=== PATIENT | male | born 1965 | race African-American/Black ===

== ENCOUNTER 2016-12-20 18:58 | Inpatient (IN) | payer MEDICARE, BC ==
--- NOTE | ~2016-12-20 | HP ---
History And Physical [id number] [place]. [address] NAME: VICKI COREY : 67 STATUS : ADM IN [facility]#: [id number] AGE: 51 ADM/REG DATE : 12/20/16 MR#: [id number] REPORT SERV DATE: 12/20/16 DICTATED BY: GIN SANTANA DATE: 12/20/16 REPORT STATUS : Draft TRANSCRIBED BY: MODL DATE: 12/20/16 DATE OF ADMISSION: 12/20/2016 CHIEF COMPLAINT: Weak and dizzy with shortness of breath. HISTORY OF PRESENT ILLNESS: Mr. Corey is a very pleasant, 51-year-old, male, past medical history of end-stage renal disease, kidney-pancreas transplant in 2000, diabetes mellitus, blindness, peripheral vascular disease, who presented to the hospital with above described complaints of weakness, dizziness, and shortness of breath. He was hospitalized here in October with bilateral pneumonia and was discharged home. His states that when he left the hospital, his hemoglobin was around 9. Last hemoglobin that we have here on November 10 was 10.1. He has been on Aranesp according to the 100 mcg every week. He had a hemoglobin checked earlier this week and it was 7.1, and upon presentation today, his hemoglobin is 5.5. He did have a stool Hemoccult done in the ER, which was reportedly negative. There is no description of dark tarry stools, but the patient is blind, and his has not observed. He has had no hematemesis, hematochezia, or other systemic complaints excluding those described. On presentation here, chest x-ray was normal showed no new cardiac infiltrates. Hemoglobin is 5.5 with hematocrit of 17.4 with a WBC count of 3.3, and platelets of 167. Potassium 4.3, and BUN and creatinine 71 and 9.39 with a glucose of 295. PAST MEDICAL HISTORY: 1. Pneumonia in October 2016. 2. End-stage renal disease, on PD at [facility]. 3. Kidney-pancreas transplant in 2000 at [facility]. 4. Diabetes mellitus type 2. 5. 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 6. Hypertension. 7. Peripheral vascular disease with prior left lower extremity stenting and amputation of the great toe. 8. Chronic immunosuppression. 9. Hyperlipidemia. 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 11.Goiter. ALLERGIES: KEFLEX. HOME MEDICATIONS: 1. Losartan 25 daily. 2. Rocaltrol 0.25 mcg daily. 3. Aspirin 325 daily. 4. Iron sulfate 325 daily. 5. Coreg 6.25 twice a day. 6. Atorvastatin 40 daily. 7. Amlodipine 10 daily. 8. CellCept 250 twice a day. History And Physical [address] [address] NAME: VICKI COREY : 67 STATUS : ADM IN [facility]#: [id number] AGE: 51 ADM/REG DATE : 12/20/16 MR#: [id number] REPORT SERV DATE: 12/20/16 DICTATED BY: GIN SANTANA DATE: 12/20/16 REPORT STATUS : Draft TRANSCRIBED BY: NIGEL DATE: 12/20/16 9. Prednisone 5 mg daily. 10.PhosLo 667 mg t.i.d. 11.Levemir 10 units q.a.m. (presently not using), 18 units q.p.m. 12.NovoLog insulin. FAMILY HISTORY: Mother of pulmonary embolus at age 63. There is history of lupus. No history of end-stage renal disease. REVIEW OF SYSTEMS: All systems reviewed, negative excluding those mentioned and highlighted in history of present illness. PHYSICAL EXAMINATION: VITAL SIGNS: Blood pressure 121/68, O2 95 on 4 L, temperature 99.6, pulse 114, respiratory rate 17. GENERAL: This is a chronically ill, male, resting comfortably, in no acute distress. HEENT: Normocephalic, atraumatic. Oropharynx clear. No exudate. NECK: Supple. No JVD or thyromegaly. No carotid bruits. Trachea midline. No stridor. CARDIOVASCULAR: Tachycardic. S1, S2. No rubs or gallops. Point of maximal impulse nondisplaced. RESPIRATORY: Mostly clear. No wheezes, rhonchi, tachypnea, or accessory muscles in use. GI: Abdomen is soft, nontender, nondistended. No hepatosplenomegaly appreciated. PD catheter in place. Clear without evidence of drainage. SKIN: No rash or breakdown. Normal turgor. NEUROLOGIC: Cranial nerves II through XII grossly intact. Motor and sensory examinations within normal limits. Strength 5/5 x4 extremities. MUSCULOSKELETAL: Full range of motion in all joints. No crepitus or joint effusions. LYMPH: No supraclavicular, cervical, inguinal, or axillary adenopathy. LABS AND DIAGNOSTIC DATA: WBC 3.3, hemoglobin 5.5, hematocrit 17.4, platelets 167. ASSESSMENT: 1. Severe symptomatic anemia with a hemoglobin of 5.5, and steady decline over the past 4 weeks. ? myelosuppression from transplant drugs versus inadequate erythropoiesis versus blood loss. 2. End-stage renal disease, on PD. 3. Hypertension. 4. Diabetes mellitus with retinopathy, nephropathy, and neuropathy. 5. Prior kidney-pancreas transplant, on CellCept and prednisone. 6. Diabetes mellitus type 2. 7. Recent pneumonia. PLAN: 1. Type and cross, transfuse 2 units packed red blood cells. We will give 1 unit of packed red blood cells and repeat H and H. We will attempt to give leukoreduced packed red blood cells if able in light of his transplant status. History And Physical [address] [address] NAME: VICKI COREY : 67 STATUS : ADM IN PAT#: [id number] AGE: 51 ADM/REG DATE : 12/20/16 MR#: [id number] REPORT SERV DATE: 12/20/16 DICTATED BY: GIN SANTANA DATE: 12/20/16 REPORT STATUS : Draft TRANSCRIBED BY: NIGEL DATE: 12/20/16 2. Serial H and H. 3. A stool occult blood x3. 4. Home PD. His prescription is 10 hours 5 exchanges with 1.5% and 2.5% solution. Partners to follow. MOISE/MERCYL Gin Santana M.D. / [id number] CC: Naeem Ac M.D.
--- NOTE | ~2016-12-20 | DS ---
Discharge Summary [facility] [address] [place]. [address] NAME: VICKI COREY : 67 STATUS : DIS IN PAT#: [id number] AGE: 51 ADM/REG DATE : 12/20/16 MR#: [id number] REPORT SERV DATE: 01/03/17 DICTATED BY: FROYLAN FLORES DATE: 01/02/17 REPORT STATUS : Draft TRANSCRIBED BY: MODL DATE: 01/02/17 Data Collection from hospitalization DISCHARGE DIAGNOSES: 1. Anemia. 2. End-stage renal disease, on peritoneal dialysis. 3. Blindness secondary to diabetes mellitus. 4. Diabetes mellitus. 5. Hypertension. 6. History of failed renal transplant. 7. Peripheral vascular disease. 8. Chronic immunosuppression. 9. Hyperlipidemia. 10.Goiter. 11.History of condyloma of the penis. CONSULTATION: Dr. Manuel Estrada. PROCEDURES: Bone marrow aspiration and biopsy, 12/23/2016. PATHOLOGY: Peripheral smear with moderate hypoproliferative anemia and mild thrombocytopenia. Hemoglobin 8.7 g/dL with rouleaux formation and reticulocyte count of 1.5%, uncorrected. Platelet 126,000/mm3. White blood cells 4100/mm3 with 2790 neutrophils/mm3. Unilateral bone marrow biopsy and aspiration and clot section-mildly hypocellular marrow with mild polyclonal plasmacytosis. No morphologic evidence of myelodysplastic syndrome. Abundant storage iron was present. DISCHARGE MEDICATIONS: Norvasc 10 mg every morning; Travis Aspirin 325 mg at bedtime; Lipitor 40 mg at bedtime; Rocaltrol 0.25 mcg on Mondays, Wednesdays, Fridays; PhosLo 667 mg three times a day; Coreg 6.25 mg twice a day, ferrous sulfate 325 mg every evening; NovoLog FlexPen 10 units subcutaneously three times a day and as instructed; Levemir 18 units subcutaneously at bedtime; Levemir 10 units subcutaneously every morning as needed, Centrum tablets one tablet every morning; CellCept 250 mg twice a day, Deltasone 5 mg twice a day. CONDITION ON DISCHARGE: Stable. DISPOSITION: The patient was discharged home on a renal diet with activities as instructed. He would follow up with Dr. Santiago Trammell as instructed. He would follow up with id as instructed. He would follow up with peritoneal dialysis/home care as instructed. HOSPITAL COURSE: This is a 51-year-old man, who has a history of end-stage renal disease as well as a history of kidney-pancreas transplant in 2000, diabetes mellitus, blindness, and peripheral vascular disease, who presented to the hospital with a chief complaint of weakness and dizziness with shortness of breath. He then hospitalized here in October with bilateral pneumonia and had been discharged home. His said that when he left the hospital, his hemoglobin was around 9. The last hemoglobin we have here on 11/10/2016 was 10.1. He has been on Aranesp according to his 100 mcg every week. Hemoglobin level was checked earlier this week and it was 7.1. On presentation on the day of this admission, Discharge Summary [id number] [place]. [address] NAME: VICKI COREY : 67 STATUS : DIS IN [facility]#: [id number] AGE: 51 ADM/REG DATE : 12/20/16 MR#: [id number] REPORT SERV DATE: 01/03/17 DICTATED BY: FROYLAN FLORES DATE: 01/02/17 REPORT STATUS : Draft TRANSCRIBED BY: NIGEL DATE: 01/02/17 it was 5.5. He had a stool Hemoccult done in the emergency room, which was reportedly negative. There was no description of dark tarry stools, but the patient is blind and his had not observed. He had had no hematemesis, hematochezia, or other systemic complaints, excluding these described. On presentation, his chest x-ray was normal and showed no new infiltrates. Creatinine level was 9.39, white count was 3.3. He was admitted to the hospital for further evaluation and treatment. Upon admission, he was typed and crossed and transfused two units of packed red blood cells. We would attempt to give leukoreduced packed red blood cells if able in light of his transplant status. Serial H and H would be checked. Stool occult blood x3 would be performed. The following day, vancomycin was continued. He said he was feeling better. He would be transfused as needed. O2 was being titrated. Sliding scale insulin only was being given at this time. On 12/22/2016, he was seen by Dr. Manuel Estrada regarding pancytopenia with severe anemia. His hemoglobin had apparently been doing well in the fall and he transiently been taken off Aranesp, but then placed back on it as anemia was reoccurring. He has a history of previous kidney transplant and had been on immunosuppressive therapy. He had been in the hospital for bilateral pneumonia not that long ago. He had received 3 units of blood since being in the hospital and hemoglobin was now 7.8. White count was a little low at 3.3 and platelet count was 122. It was 167 on admission. Procalcitonin level was elevated at over 4 on admission. He had a normal bilirubin. Iron and TIBC were both low with normal iron saturation and markedly elevated ferritin over 1300. B12 level was also elevated at 1600 and folate level was 23. He was currently feeling better post blood transfusions. He personally reviewed the patient's smear and he had a predominance of neutrophils with some increase in bands. No immature white cells were seen. There was slight toxic granulation to some of the neutrophils. No blasts or other early myeloid cells were seen. Red cells showed significant abnormal morphology with anisocytosis, poikilocytosis, and possibly some polychromasia. A few of the cells looked a little hypochromic, another 6 spherocytic. There were occasional helmet cells and other rare fragmented red cells. Rare teardrop cells were seen. Platelets were slightly decreased, but unremarkable without obvious clumping. It was felt that he could have some marrow suppression from infection and also anemia of chronic disease, but the anemia of chronic disease does not explain the rapid drop in hemoglobin over the past several weeks while getting Aranesp. He had not had any visible blood in his peritoneal dialysis fluid removed either. A reticulocyte count and LDH would be checked. There was a low threshold for ordering a bone marrow biopsy as well to make sure we were not missing some other marrow based process. He complained of having a cough at night that was nonproductive. Peritoneal dialysis therapy continued. On 12/23/2016, he was feeling okay. A bone marrow biopsy was performed. Hemoglobin level was stable at this time. Antibiotics were stopped. The next day, he had no new complaints. He was afebrile. White blood cell count was normal. Platelet count was stable. Aranesp was going to be continued. Discharge planning was performed. On 12/25/2016, hemoglobin level was 8.7. He wanted to go home. Discharge instructions were given. Due to his improved and stable condition, he was discharged home with the above-stated instructions. Information collected by: Jyothi White I submit the above information as my discharge summary. Discharge Summary [facility] [address] [place]. [address] NAME: VICKI COREY : 67 STATUS : DIS IN PAT#: [id number] AGE: 51 ADM/REG DATE : 12/20/16 MR#: [id number] REPORT SERV DATE: 01/03/17 DICTATED BY: FROYLAN FLORES DATE: 01/02/17 REPORT STATUS : Draft TRANSCRIBED BY: MODL DATE: 01/02/17 TG/NIGEL Froylan Flores M.D. / [id number] CC: Naeem Ac M.D. Michael Stipanov, M.D.
--- NOTE | ~2016-12-20 | CN ---
Consultation Report [facility] [address] [place]. [address] NAME: VIKCI COREY : 67 STATUS : ADM IN PAT#: [id number] AGE: 51 ADM/REG DATE : 12/20/16 MR#: [id number] REPORT SERV DATE: 12/22/16 DICTATED BY: MANUEL ESTRADA DATE: 12/22/16 REPORT STATUS : Draft TRANSCRIBED BY: MODWendy DATE: 12/22/16 CONSULTATION NOTE DATE OF CONSULTATION: 12/22/2016 REASON FOR CONSULTATION: Pancytopenia with severe anemia. HISTORY: Mr. Corey is a 51-year-old with a history of type 1 diabetes and end-stage renal disease, on peritoneal dialysis. His hemoglobin was apparently doing well in the fall and he was transiently taken off Aranesp, but then placed back on it as anemia was recurring. He has also had a previous kidney transplant and has been on immunosuppressive therapy. He was also in the hospital for bilateral pneumonia, not too long ago. His hemoglobin was around 9 at that time and on 11/10/2016 it was 10.1. He has been getting 100 mcg of Aranesp every 2 weeks recently. He has had no visible blood loss known (however, the patient himself is blind). He has had no significant sore throat. He has had a very minimal cough recently, but no dysuria. He was admitted with weakness and a hemoglobin of 5.5. Stool for occult blood in the ER was negative. His creatinine has been running in the 9 range. He has received 3 units of blood since being in the hospital and his hemoglobin is up to 7.8 today. His white count is a little bit low at 3.3 and platelets were 122 today, down from 167 on admission. He did have an elevated procalcitonin level at over 4 on admission. He had a normal bilirubin on 12/20/2016 at 0.5. LDH is pending. Iron and TIBC were both low with a normal iron saturation and a markedly elevated ferritin over 1300. B12 level was elevated at 1600 and folate level was 23. He is currently feeling better post blood transfusions. PAST MEDICAL HISTORY: Significant for end-stage renal disease, on peritoneal dialysis. He has also had a kidney transplant back in 2000. He also has a history of type 1 diabetes, diagnosed at age 14, and he is completely blind from this as well; and also recent pneumonia. FAMILY HISTORY: Negative for coronary artery disease. SOCIAL HISTORY: He lives locally and is . He has a daughter and she is doing well. He is disabled from his end-stage renal disease and blindness. REVIEW OF SYSTEMS: Per HPI above, otherwise unrevealing. CURRENT MEDICATIONS: Include Zosyn, Tylenol, Rocaltrol, PhosLo, Deltasone 5 mg daily, morphine, NovoLog, Levemir, CellCept, Lipitor, subcu heparin and recent vancomycin is given. PHYSICAL EXAMINATION: VITAL SIGNS: Blood pressure 95/59, O2 sats 92% on 2 L, current temperature 101.4 and an elevated temperature of 102.6, pulse 90. Consultation Report [address] [place]. [address] NAME: VICKI COREY : 67 STATUS : ADM IN [facility]#: [id number] AGE: 51 ADM/REG DATE : 12/20/16 MR#: [id number] REPORT SERV DATE: 12/22/16 DICTATED BY: MANUEL ESTRADA DATE: 12/22/16 REPORT STATUS : Draft TRANSCRIBED BY: NIGEL DATE: 12/22/16 GENERAL: He is an male, who is blind. Despite multiple problems, he is not in distress and appears comfortable. HEENT: Oropharynx clear. NECK: Without obvious adenopathy or JVD. LUNGS: Clear anteriorly. CARDIAC: Regular without murmur, rub, or gallop. ABDOMEN: Soft. Not overtly tender. He does have a PD catheter implanted in his abdomen with a clean exit site, with no purulent drainage or surrounding erythema. EXTREMITIES: Without cyanosis or edema. NEUROLOGIC: He moves all extremities. He is blind as above. He is coherent and is a good historian. He is in good spirits. SKIN: Without obvious lesions seen. LABORATORY DATA: White count 3.3, hemoglobin up to 7.8 from a low of 5.5 on admission, platelets are down from 167 to 122 on admission. Differential shows 51 segs, 9 bands, 14 lymphocytes, 23 monos and 2 eos. I personally reviewed his smear and he has a predominance of neutrophils with some increase in bands. No immature white cells are seen. There is slight toxic granulation to some of the neutrophils. No blasts or other early myeloid cells are seen. Red cells showed significant abnormal morphology with anisocytosis, poikilocytosis, and possibly some polychromasia. A few of the cells look a little hypochromic, another 6 spherocytic. There were occasional helmet cells and other rare fragmented red cells. Rare teardrop cells were seen. Platelets are slightly decreased, but unremarkable without obvious clumping. IMPRESSION: Mr. Corey has mild pancytopenia with marked anemia for unclear reasons. He has a fever, elevated procalcitonin level, and possible infection from unclear source. He has no obvious bleeding. Initial stool is heme negative. He could have some marrow suppression from infection and of course, has anemia of chronic kidney disease, but the anemia of chronic kidney disease does not explain the rapid drop in hemoglobin over the last several weeks while getting Aranesp. He has not had any visible blood in his peritoneal dialysis fluid removed either. I will start with a retic count and LDH. I will have a low threshold for ordering a bone marrow biopsy as well to make sure not missing some other marrow-based process. We will follow with colleagues when he is well enough to go home. He can follow up in the office as well. I appreciate the chance to be of help. /NIGEL Manuel Estrada M.D. / [id number] CC: Consultation Report [address] [address] NAME: VICKI COREY : 67 STATUS : ADM IN [facility]#: [id number] AGE: 51 ADM/REG DATE : 12/20/16 MR#: [id number] REPORT SERV DATE: 12/22/16 DICTATED BY: MANUEL ESTRADA DATE: 12/22/16 REPORT STATUS : Draft TRANSCRIBED BY: NIGEL DATE: 12/22/16 Naeem Ac M.D.
[2016-12-20 17:07] LABS: BASOPHILS 0.6 %; BASOPHILS ABSOLUTE 0.02 10/3/uL (0.0-0.16); EOSINOPHILS 2.4 %; EOSINOPHILS ABSOLUTE 0.08 10/3/uL (0.0-0.53); LYMPHOCYTES ABSOLUTE 0.97 10/3/uL (0.67-4.30); MEAN CORPUS HGB CONC 31.6 g/dL (32.0-36.0); MEAN CORPUSCULAR HEMOGLOB 29.4 pg (26.0-34.0); MEAN PLATELET VOLUME 10.6 fL (9.2-13.0); MONOCYTES 20.1 %; MONOCYTES ABSOLUTE 0.67 10/3/uL (0.21-1.20); NEUTROPHILS 47.9 %; NUCLEATED RED BLOOD CELLS 1.2 /100WBC (0-0); PLATELET COUNT 167 10/3/uL (150-400); RBC DISTRIBUTION WIDTH 16.5 % (12.0-16.0)
[2016-12-20 17:11] LABS: A/G RATIO 0.6 (0.7-1.9); ALKALINE PHOSPHATASE 77 U/L (45-117); CALCIUM, SERUM 8.5 MG/DL (8.5-10.4); CHLORIDE, SERUM 102 MMOL/L (96-112); GLOBULIN 3.9 G/DL (2.5-4.1); SGOT(AST) 62 U/L (5-40); SGPT(ALT) 31 U/L (5-65); SODIUM, SERUM 140 MMOL/L (135-148); TOTAL BILIRUBIN 0.5 MG/DL (0-1.2); TOTAL PROTEIN 6.4 G/DL (6.0-8.5)
[2016-12-20 17:12] LABS: ER CBC TAT 0 Hrs 24 Mins; HEMATOCRIT 17.4 % (40.0-51.0); HEMOGLOBIN 5.5 g/dL (13.6-17.8); RED CELL COUNT 1.87 10/6/uL (4.7-6.1); WHITE BLOOD CELLS 3.3 10/3/uL (4.5-10.5)
[2016-12-20 17:13] LABS: MANUAL DIFF NO %
[2016-12-20 17:15] LABS: ALBUMIN 2.5 G/DL (3.5-5.0); BUN (BLOOD UREA NITROGEN) 71 MG/DL (6-23); CO2 (CARBON DIOXIDE) 21 MMOL/L (24-34); CREATININE 9.39 MG/DL (0.70-1.30); GFR AFRICAN AMERICAN 7 ML/MIN (>=60); GFR NON AFRICAN AMERICAN 6 ML/MIN (>=60); GLUCOSE, SERUM 295 MG/DL (60-99); POTASSIUM, SERUM 4.3 MMOL/L (3.5-5.3)
[2016-12-20 17:30] LABS: ANISOCYTOSIS 1+ (5-10/OIF) (0-5/OIF); BAND NEUTROPHILS 2 %; ER DIFF TAT 0 Hrs 42 Mins; HELMET CELLS OCC (0-2/OIF); LYMPHOCYTES 28 %; LYMPHOCYTES ABSOLUTE (CALC) 0.92 10/3/uL (0.67-4.30); MONOCYTES 18 %; MONOCYTES ABSOLUTE (CALC) 0.59 10/3/uL (0.21-1.20); NEUTROPHILS ABSOLUTE (CALC) 1.78 10/3/uL (2.02-8.40); OVALOCYTES 1+ (3-10/OIF) (0-2/OIF); PLATELET ESTIMATE ADQ (ADEQUATE); SCHISTOCYTES OCC (0-2/OIF); SEGMENTED NEUTROPHIL (0) 52 %; TEARDROP SHAPED RBCS OCC (0-2/OIF); TOTAL NUCLEATED CELLS 50
[~2016-12-20 18:58] MED LIST: AMLODIPINE; APRES25 PO; APRES50 PO; APRESOLINE; ASA5GR PO; ASAB PO; ASPIRIN; ATORVASTATIN; CARVEDILOL; CELLCEPT; CELLCEPT2 PO; CELLCEPT5 PO; CENTRUM PO; CLOPIDOGREL; COREG12 PO; COREG25 PO; COREG6 PO; COZ25 PO; DICLOXACILL250 MG OR; FERROUS SULF325 M1 PO; HUMULIN N1 ML SC; IRON325 MG PO; L40 PO; LEVAQUIN; LEVAQUIN5T PO; LEVEMIR SC; LIPITOR10 PO; LIPITOR40 PO; LORTAB 5 PO; NORV10 PO; NORV5 PO; NOVOLOG; NOVOLOG SC; NOVOPEN SC; NYS500UDL PO; P5 PO; PHOSLO PO; PREDNISONE; PRIN10 PO; PRIN20 PO; PROCRIT40 SC; PROGRAF; PROGRAF1 PO; ROCALTROL 0.0.25 MCG PO; SODBICAR10 PO; SODIUM BICAR; THERGRANM PO; VITAMIN D31000 UNIT PO; VITD PO
[2016-12-20 19:33] LABS: INTERNATIONAL NORMAL RATI 1.3 UNITS (-); PROTIME (NOT ORD) 16.3 SEC (12.0-14.5)
[2016-12-20] MEDS ORDERED: NORV10 PO (19:51)
[2016-12-20] MEDS ORDERED: ASABAYER PO (19:51)
[2016-12-20] MEDS ORDERED: COZ25 PO (19:52)
[2016-12-20] MEDS ORDERED: P5 PO (19:53)
[2016-12-20] MEDS ORDERED: CELLCEPT2 PO (19:54)
[2016-12-20] MEDS ORDERED: CENTRUM PO (19:54)
[2016-12-20] MEDS ORDERED: FERROUS SULF325 M1 PO (19:54)
[2016-12-20] MEDS ORDERED: LEVEMIR SC ×2 (19:55→19:56)
[2016-12-20] MEDS ORDERED: NOVOPEN SC ×2 (19:57)
[2016-12-20] MEDS ORDERED: ROCALTROL0.25 MCG PO (19:58)
[2016-12-20] MEDS ORDERED: PHOSLO PO ×2 (19:58→19:59)
[2016-12-20] MEDS ORDERED: COREG6 PO (19:58)
[2016-12-20] MEDS ORDERED: LIPITOR40 PO (20:01)
[2016-12-20] MEDS ORDERED: CLINDA150 PO (20:11)
[2016-12-21 01:11] LABS: HEMATOCRIT 19.7 % (40.0-51.0); HEMOGLOBIN 6.5 g/dL (13.6-17.8)
[2016-12-21 08:02] LABS: BASOPHILS 0.8 %; BASOPHILS ABSOLUTE 0.03 10/3/uL (0.0-0.16); EOSINOPHILS 4.1 %; EOSINOPHILS ABSOLUTE 0.15 10/3/uL (0.0-0.53); HEMOGLOBIN 7.1 g/dL (13.6-17.8); IMMATURE GRANULOCYTES 0.6 %; IMMATURE GRANULOCYTES ABSOLUTE 0.02 10/3/uL (0.0-0.11); LYMPHOCYTES 27.3 %; LYMPHOCYTES ABSOLUTE 0.99 10/3/uL (0.67-4.30); MEAN CORPUS HGB CONC 32.4 g/dL (32.0-36.0); MEAN CORPUSCULAR HEMOGLOB 29.6 pg (26.0-34.0); MEAN CORPUSCULAR VOLUME 91.3 fL (80-100); MEAN PLATELET VOLUME 10.9 fL (9.2-13.0); MONOCYTES 18.5 %; MONOCYTES ABSOLUTE 0.67 10/3/uL (0.21-1.20); NEUTROPHILS 48.7 %; NEUTROPHILS ABSOLUTE 1.76 10/3/uL (2.02-8.40); NUCLEATED RED BLOOD CELLS 1.3 /100WBC (0-0); PLATELET COUNT 145 10/3/uL (150-400); RBC DISTRIBUTION WIDTH 16.6 % (12.0-16.0); WHITE BLOOD CELLS 3.6 10/3/uL (4.5-10.5)
[2016-12-21 08:15] LABS: HEMATOCRIT 21.9 % (40.0-51.0); MANUAL DIFF NO %
[2016-12-21 08:38] LABS: ALBUMIN 2.3 G/DL (3.5-5.0); BUN (BLOOD UREA NITROGEN) 70 MG/DL (6-23); CALCIUM, SERUM 8.3 MG/DL (8.5-10.4); CHLORIDE, SERUM 106 MMOL/L (96-112); CO2 (CARBON DIOXIDE) 22 MMOL/L (24-34); FERRITIN 1140 NG/ML (26-388); GFR AFRICAN AMERICAN 6 ML/MIN (>=60); GFR NON AFRICAN AMERICAN 6 ML/MIN (>=60); IRON, SERUM 29 MCG/DL (35-150); PHOSPHORUS, SERUM 4.1 MG/DL (2.5-4.5); SODIUM, SERUM 143 MMOL/L (135-148)
[2016-12-21 08:40] LABS: FOLATE 23.5 NG/ML (>5.2); GLUCOSE, SERUM 66 MG/DL (60-99)
[2016-12-21 15:55] LABS: ASCORBIC ACID (UR NOT ORDER) NEG (NEG); BILIRUBIN, URINE NEGATIVE (NEG); KETONE, URINE NEGATIVE (NEG); LEUKOCYTE ESTERASE(NOT OR NEG (NEG); WBC (NOT ORDERED) (RFLEX) 4 (0-5)
[2016-12-21 15:58] LABS: HEMATOCRIT 20.9 % (40.0-51.0)
[2016-12-21 17:54] LABS: INFLUENZA A SCREEN NEGATIVE (NEGATIVE); INFLUENZA B SCREEN NEGATIVE (NEGATIVE)
[2016-12-21 18:13] LABS: PROCALCITONIN 4.15 ng/mL (<0.5)
[2016-12-21 20:22] LABS: HEMOGLOBIN 6.4 g/dL (13.6-17.8)
[2016-12-21 20:36] LABS: BD FL SOURCE (NOT ORD) PERITONEAL
[2016-12-21 20:38] LABS: BD FL LYMPH (NOT ORD) 8 %; BF BASO (NOT OF) 0 %; BF LARGE MONONUCLEAR 70 %; BODY FLUID EOS (NOT ORD) 0 %; BODY FLUID SEG (NOT ORD) 22 %
[2016-12-21 21:55] LABS: BF TOTAL CELL CT (NOT ORD 53 /MM3; BODY FLUID RBC (NOT ORD) < 10 /MM3
[2016-12-22 11:53] LABS: MEAN CORPUS HGB CONC 32.5 g/dL (32.0-36.0); MEAN CORPUSCULAR HEMOGLOB 29.2 pg (26.0-34.0); MEAN CORPUSCULAR VOLUME 89.9 fL (80-100); MEAN PLATELET VOLUME 11.1 fL (9.2-13.0); PLATELET COUNT 122 10/3/uL (150-400); RBC DISTRIBUTION WIDTH 17.7 % (12.0-16.0); RED CELL COUNT 2.67 10/6/uL (4.7-6.1); WHITE BLOOD CELLS 3.3 10/3/uL (4.5-10.5)
[2016-12-22 11:56] LABS: HEMOGLOBIN 7.8 g/dL (13.6-17.8); MANUAL DIFF YES %
[2016-12-22 12:10] LABS: CALCIUM, SERUM 8.3 MG/DL (8.5-10.4); CHLORIDE, SERUM 106 MMOL/L (96-112); CO2 (CARBON DIOXIDE) 24 MMOL/L (24-34); PHOSPHORUS, SERUM 3.6 MG/DL (2.5-4.5); POTASSIUM, SERUM 3.7 MMOL/L (3.5-5.3); SODIUM, SERUM 142 MMOL/L (135-148)
[2016-12-22 12:11] LABS: BUN (BLOOD UREA NITROGEN) 66 MG/DL (6-23); CREATININE 9.08 MG/DL (0.70-1.30); GFR AFRICAN AMERICAN 7 ML/MIN (>=60); GFR NON AFRICAN AMERICAN 6 ML/MIN (>=60); GLUCOSE, SERUM 84 MG/DL (60-99)
[2016-12-22 12:20] LABS: BAND NEUTROPHILS 9 %; BURR CELLS 1+ (3-10/OIF) (0-2/OIF); EOSINOPHILS 2 %; EOSINOPHILS ABSOLUTE (CALC) 0.07 10/3/uL (0.0-0.53); HELMET CELLS OCC (0-2/OIF); IMMATURE GRANS ABSOLUTE (CALC) 0.03 10/3/uL (0.0-0.11); LYMPHOCYTES 14 %; LYMPHOCYTES ABSOLUTE (CALC) 0.46 10/3/uL (0.67-4.30); METAMYELOCYTES 1 %; MONOCYTES 23 %; MONOCYTES ABSOLUTE (CALC) 0.76 10/3/uL (0.21-1.20); NEUTROPHILS ABSOLUTE (CALC) 1.98 10/3/uL (2.02-8.40); PLATELET ESTIMATE SLT DEC (ADEQUATE); POIKILOCYTOSIS 1+ (5-10/OIF) (0-5/OIF); SEGMENTED NEUTROPHIL (0) 51 %; TOTAL NUCLEATED CELLS 100
[2016-12-22 12:21] LABS: ANISOCYTOSIS 1+ (5-10/OIF) (0-5/OIF); MACROCYTES 1+ (5-10/OIF) (0-5/OIF); TOXIC GRANULATION 1+
[2016-12-22 14:49] LABS: RETICULOCYTE COUNT 1.3 % (0.5-2.9)
[2016-12-22 20:14] LABS: HEMATOCRIT 24.7 % (40.0-51.0)
[2016-12-23 08:39] LABS: HEMATOCRIT 26.9 % (40.0-51.0); HEMOGLOBIN 8.7 g/dL (13.6-17.8); MEAN CORPUS HGB CONC 32.3 g/dL (32.0-36.0); MEAN CORPUSCULAR HEMOGLOB 29.5 pg (26.0-34.0); MEAN CORPUSCULAR VOLUME 91.2 fL (80-100); MEAN PLATELET VOLUME 11.5 fL (9.2-13.0); PLATELET COUNT 126 10/3/uL (150-400); RBC DISTRIBUTION WIDTH 17.6 % (12.0-16.0); RED CELL COUNT 2.95 10/6/uL (4.7-6.1); WHITE BLOOD CELLS 4.1 10/3/uL (4.5-10.5)
[2016-12-23 08:42] LABS: MANUAL DIFF YES %
[2016-12-23 08:51] LABS: CALCIUM, SERUM 8.3 MG/DL (8.5-10.4); CHLORIDE, SERUM 104 MMOL/L (96-112); CO2 (CARBON DIOXIDE) 26 MMOL/L (24-34); PHOSPHORUS, SERUM 3.7 MG/DL (2.5-4.5); POTASSIUM, SERUM 3.6 MMOL/L (3.5-5.3); SODIUM, SERUM 141 MMOL/L (135-148)
[2016-12-23 08:52] LABS: BUN (BLOOD UREA NITROGEN) 61 MG/DL (6-23); CREATININE 8.56 MG/DL (0.70-1.30); GFR AFRICAN AMERICAN 8 ML/MIN (>=60); GFR NON AFRICAN AMERICAN 7 ML/MIN (>=60); GLUCOSE, SERUM 248 MG/DL (60-99)
[2016-12-23 09:18] LABS: BAND NEUTROPHILS 7 %; EOSINOPHILS 4 %; EOSINOPHILS ABSOLUTE (CALC) 0.16 10/3/uL (0.0-0.53); LYMPHOCYTES 21 %; LYMPHOCYTES ABSOLUTE (CALC) 0.86 10/3/uL (0.67-4.30); MONOCYTES 7 %; MONOCYTES ABSOLUTE (CALC) 0.29 10/3/uL (0.21-1.20); NEUTROPHILS ABSOLUTE (CALC) 2.79 10/3/uL (2.02-8.40); SEGMENTED NEUTROPHIL (0) 61 %; TOTAL NUCLEATED CELLS 100
[2016-12-23 09:19] LABS: ANISOCYTOSIS 1+ (5-10/OIF) (0-5/OIF); PLATELET ESTIMATE SLT DEC (ADEQUATE); POIKILOCYTOSIS 1+ (5-10/OIF) (0-5/OIF); POLYCHROMASIA 1+ (2-5/OIF) (0-1/OIF); TOXIC GRANULATION 1+
[2016-12-23 13:08] LABS: HEMATOCRIT 24.8 % (40.0-51.0); HEMOGLOBIN 7.9 g/dL (13.6-17.8); RETICULOCYTE COUNT 1.5 % (0.5-2.5); RETICULOCYTE COUNT ABSOLUTE 41.8 10/3/uL (20.2-119.8)
[2016-12-23 20:09] LABS: HEMOGLOBIN 8.8 g/dL (13.6-17.8)
[2016-12-23 20:11] LABS: HEMATOCRIT 27.3 % (40.0-51.0)
[2016-12-24 07:38] LABS: BUN (BLOOD UREA NITROGEN) 51 MG/DL (6-23); CALCIUM, SERUM 8.7 MG/DL (8.5-10.4); CHLORIDE, SERUM 103 MMOL/L (96-112); CO2 (CARBON DIOXIDE) 25 MMOL/L (24-34); CREATININE 8.17 MG/DL (0.70-1.30); GFR AFRICAN AMERICAN 8 ML/MIN (>=60); GFR NON AFRICAN AMERICAN 7 ML/MIN (>=60); GLUCOSE, SERUM 261 MG/DL (60-99); POTASSIUM, SERUM 3.5 MMOL/L (3.5-5.3); SODIUM, SERUM 141 MMOL/L (135-148)
[2016-12-24 08:06] LABS: HEMATOCRIT 26.6 % (40.0-51.0); HEMOGLOBIN 8.4 g/dL (13.6-17.8); MANUAL DIFF YES %; MEAN CORPUS HGB CONC 31.6 g/dL (32.0-36.0); MEAN CORPUSCULAR HEMOGLOB 28.8 pg (26.0-34.0); MEAN CORPUSCULAR VOLUME 91.1 fL (80-100); MEAN PLATELET VOLUME 12.3 fL (9.2-13.0); PLATELET COUNT 124 10/3/uL (150-400); RED CELL COUNT 2.92 10/6/uL (4.7-6.1); WHITE BLOOD CELLS 4.5 10/3/uL (4.5-10.5)
[2016-12-24 08:28] LABS: ACANTHOCYTES OCC (0-2/OIF); ANISOCYTOSIS 1+ (5-10/OIF) (0-5/OIF); EOSINOPHILS 10 %; EOSINOPHILS ABSOLUTE (CALC) 0.45 10/3/uL (0.0-0.53); LYMPHOCYTES 18 %; LYMPHOCYTES ABSOLUTE (CALC) 0.81 10/3/uL (0.67-4.30); MONOCYTES 22 %; MONOCYTES ABSOLUTE (CALC) 0.99 10/3/uL (0.21-1.20); NEUTROPHILS ABSOLUTE (CALC) 2.25 10/3/uL (2.02-8.40); PLATELET ESTIMATE SLT DEC (ADEQUATE); SEGMENTED NEUTROPHIL (0) 50 %; TOTAL NUCLEATED CELLS 100
[2016-12-24 12:36] LABS: HEMATOCRIT 27.2 % (40.0-51.0); HEMOGLOBIN 8.5 g/dL (13.6-17.8)
[2016-12-24 20:50] LABS: HEMATOCRIT 28.5 % (40.0-51.0); HEMOGLOBIN 9.2 g/dL (13.6-17.8)
[2016-12-25 06:31] LABS: BASOPHILS 0.2 %; BASOPHILS ABSOLUTE 0.01 10/3/uL (0.0-0.16); EOSINOPHILS 4.2 %; EOSINOPHILS ABSOLUTE 0.17 10/3/uL (0.0-0.53); HEMATOCRIT 27.7 % (40.0-51.0); IMMATURE GRANULOCYTES 0.2 %; IMMATURE GRANULOCYTES ABSOLUTE 0.01 10/3/uL (0.0-0.11); LYMPHOCYTES 21.1 %; LYMPHOCYTES ABSOLUTE 0.86 10/3/uL (0.67-4.30); MEAN CORPUS HGB CONC 32.5 g/dL (32.0-36.0); MEAN CORPUSCULAR HEMOGLOB 29.8 pg (26.0-34.0); MEAN CORPUSCULAR VOLUME 91.7 fL (80-100); MEAN PLATELET VOLUME 11.3 fL (9.2-13.0); MONOCYTES 18.7 %; MONOCYTES ABSOLUTE 0.76 10/3/uL (0.21-1.20); NEUTROPHILS 55.6 %; NEUTROPHILS ABSOLUTE 2.26 10/3/uL (2.02-8.40); RBC DISTRIBUTION WIDTH 16.8 % (12.0-16.0); RED CELL COUNT 3.02 10/6/uL (4.7-6.1); WHITE BLOOD CELLS 4.1 10/3/uL (4.5-10.5)
[2016-12-25 06:32] LABS: MANUAL DIFF NO %; PLATELET COUNT 168 10/3/uL (150-400)
[2016-12-25 06:38] LABS: ALBUMIN 1.7 G/DL (3.5-5.0); BUN (BLOOD UREA NITROGEN) 49 MG/DL (6-23); CALCIUM, SERUM 8.5 MG/DL (8.5-10.4); CHLORIDE, SERUM 103 MMOL/L (96-112); CO2 (CARBON DIOXIDE) 28 MMOL/L (24-34); CREATININE 8.54 MG/DL (0.70-1.30); GFR AFRICAN AMERICAN 8 ML/MIN (>=60); GFR NON AFRICAN AMERICAN 7 ML/MIN (>=60); GLUCOSE, SERUM 243 MG/DL (60-99); PHOSPHORUS, SERUM 3.8 MG/DL (2.5-4.5); POTASSIUM, SERUM 3.6 MMOL/L (3.5-5.3); SODIUM, SERUM 141 MMOL/L (135-148)
[2016-12-25 12:43] LABS: HEMATOCRIT 27.5 % (40.0-51.0); HEMOGLOBIN 8.7 g/dL (13.6-17.8)
== END 2016-12-25 18:20 | disposition home or self-care (01) | DRG 808 ==
LOC: ER 18:58 → 5SO 19:25
PROVIDERS: Emergency Medicine; Hospitalist; Internal Medicine Hematology & Oncology; Internal Medicine Nephrology; Nurse Practitioner
PROC: 30233P1 Transfusion of Nonautologous Frozen Red Cells into Peripheral Vein, Percutaneous Approach (ICD-10-PCS; principal; 2016-12-20)
PROC: 07DR3ZX Extraction of Iliac Bone Marrow, Percutaneous Approach, Diagnostic (ICD-10-PCS; 2016-12-23)
DX: D61.818 Other pancytopenia (principal); N18.6 End stage renal disease; E10.22 Type 1 diabetes mellitus with diabetic chronic kidney disease; Z94.83 Pancreas transplant status; I12.0 Hypertensive chronic kidney disease with stage 5 chronic kidney disease or end stage renal disease; Z94.0 Kidney transplant status; E10.42 Type 1 diabetes mellitus with diabetic polyneuropathy; D63.1 Anemia in chronic kidney disease; E10.319 Type 1 diabetes mellitus with unspecified diabetic retinopathy without macular edema; Z99.2 Dependence on renal dialysis; Z79.52 Long term (current) use of systemic steroids; Z87.01 Personal history of pneumonia (recurrent); Z79.84 Long term (current) use of oral hypoglycemic drugs; E78.5 Hyperlipidemia, unspecified; Z89.412 Acquired absence of left great toe; Z88.1 Allergy status to other antibiotic agents; Z79.82 Long term (current) use of aspirin; Z79.899 Other long term (current) drug therapy
CPT/HCPCS: 36415; 36430; 71020; 80048; 80053; 80069; 80202; 81001; 82533; 82607; 82728; 82746; 82962; 83010; 83540; 83615; 83735; 84145; 84466; 85014; 85018; 85025; 85045; 85610; 86850; 86880; 86900; 86901; 86920; 87040; 87070; 87205; 87804; 88184; 88185; 88237; 88264; 88305; 88311; 88313; 88342; 89051; 93005; 99285; A9270-GY; J1940; J2543; J3370; P9016

== ENCOUNTER 2017-01-27 23:50 | Inpatient (IN) | payer MEDICARE, BC ==
--- NOTE | ~2017-01-27 | DS ---
Discharge Summary [facility] [address] [facility] [place]. [address] NAME: VICKI COREY : 67 STATUS : DIS IN PAT#: [id number] AGE: 52 ADM/REG DATE : 01/28/17 MR#: [id number] REPORT SERV DATE: 02/12/17 DICTATED BY: JUANCARLOS GROSSMAN DATE: 02/12/17 REPORT STATUS : Draft TRANSCRIBED BY: NIGEL DATE: 02/12/17 Data Collection from hospitalization DISCHARGE DIAGNOSES: 1. Clostridium difficile colitis. 2. Hypotension. 3. Hypoglycemia. 4. Nausea and vomiting. 5. End-stage renal disease. 6. Blindness. 7. Diabetes mellitus. 8. Hypertension. 9. Chronic immunosuppression. 10.Anemia. 11.Hyperlipidemia. 12.Peripheral vascular disease. CONSULTATIONS: None. PROCEDURES: None. DISCHARGE MEDICATIONS: Norvasc 10 mg every morning, Travis Aspirin 325 mg at bedtime, Lipitor 40 mg at bedtime, Rocaltrol 0.25 mcg on Mondays, Wednesdays, and Fridays, PhosLo 667 mg three times a day before meals, Coreg 6.25 mg twice a day, ferrous sulfate 325 mg every evening, NovoLog injection insulin 10 units subcutaneously three times a day and as instructed, Levemir 18 units subcutaneously at bedtime and 10 units subcutaneously daily in the morning as needed, Centrum tablets one tablet every morning, Deltasone 5 mg twice a day, vancomycin 125 mg as instructed. CONDITION ON DISCHARGE: Stable. DISPOSITION: The patient was discharged home on a renal diet with activities as instructed. He would follow up at the [facility] as scheduled. HOSPITAL COURSE: This is a 52-year-old man who has end-stage renal disease. He is status post failed kidney and pancreas transplant. He is currently maintained and followed by Dr. Virgen on peritoneal dialysis. He was in the hospital in December and had extensive workup of anemia. He said that he went home and was doing relatively well for a week or so. He then developed diarrhea. He was placed on Flagyl by Dr. Virgen. He had some improvement but then continued with significant loose stools, approximately 3 per day. He stopped the Flagyl which was prescribed. He did not complete his course, and he was gradually increased in frequency of liquid stool. He developed nausea and vomiting and according to his had not had any solids orally in approximately 48 hours. He was therefore brought to the emergency department and found to have C difficile. White count was elevated, and he had a procalcitonin level of 6. He was admitted to the hospital at this time for further evaluation and treatment. Upon admission, he was going to be started on vancomycin orally in a long tapering dose. He Discharge Summary [address] [address] NAME: VICKI COREY : 67 STATUS : DIS IN PAT#: [id number] AGE: 52 ADM/REG DATE : 01/28/17 MR#: [id number] REPORT SERV DATE: 02/12/17 DICTATED BY: JUANCARLOS GROSSMAN DATE: 02/12/17 REPORT STATUS : Draft TRANSCRIBED BY: NIGEL DATE: 02/12/17 was receiving IV fluids and IV antiemetics. Peritoneal dialysis therapy would be continued. His antihypertensives will be held as able. The following day, peritoneal dialysis therapy was performed. He was evaluated by Physical Therapy. He did have one bowel movement. He had no vomiting. He had no appetite. Over the next couple of days he was not eating, but he seemed to be feeling better. He was having some bowel movements. His lungs were clear. Discharge planning was performed. He continued to undergo peritoneal dialysis. His diarrhea began to improve. On 02/01/2017, his diarrhea had resolved. His lungs remained clear. He had no edema. Discharge instructions were given. Due to his improved and stable condition, he was discharged home with the above-stated instructions. Information collected by: Jyothi White I submit the above information as my discharge summary. RONN/NIGEL Juancarlos Grossman M.D. / [id number] CC: Naeem Nielson M.D.
--- NOTE | ~2017-01-27 | HP ---
History And Physical [id number] [place]. [address] NAME: VICKI COREY : 67 STATUS : ADM IN [facility]#: [id number] AGE: 52 ADM/REG DATE : 01/28/17 MR#: [id number] REPORT SERV DATE: 01/28/17 DICTATED BY: DATE: REPORT STATUS : Draft TRANSCRIBED BY: MODL DATE: 01/28/17 DATE OF ADMISSION: 01/28/2017 CHIEF COMPLAINT: Diarrhea, nausea, and vomiting. HISTORY OF PRESENT ILLNESS: Mr. Corey is a very pleasant 52-year-old black male with end- stage renal disease. He is status post failed kidney and pancreas transplant, currently maintained and followed by Dr. Virgen on peritoneal dialysis. He was in the hospital in December, had extensive workup of anemia. States he went home, was doing relatively well for a week or so. Then developed diarrhea. He was placed on Flagyl by Dr. Virgen. He had some improvement and but still continued with significant loose stools approximately three per day. He stopped the Flagyl that was prescribed, he did not complete his course, and he was gradually increased in frequency of liquid stools, developing nausea and vomiting, and per the , he has not had anything solid p.o. in approximately 48 hours now. Therefore, he was brought to the emergency department, found to have C difficile, white blood cell count elevation, and procalcitonin of 6. Given all this, he has been admitted for further evaluation and treatment. PAST MEDICAL HISTORY: Failed kidney and pancreas transplant, chronic immunosuppression, diabetes with diabetic retinopathy. He is blind. Hypertension, condyloma of the penis, goiter, anemia with negative bone marrow biopsy for any myelodysplastic syndrome, hyperlipidemia, peripheral vascular disease, left lower extremity stenting, left great toe amputation, and end-stage renal disease. ALLERGIES: KEFLEX. FAMILY MEDICAL HISTORY: Positive for lupus. No end-stage renal disease. SOCIAL HISTORY: He is . No tobacco, alcohol, or illicit drug use. MEDICATIONS AT HOME: Amlodipine, aspirin, atorvastatin, Rocaltrol, PhosLo, Coreg, ferrous sulfate, NovoLog, Levemir, centrum, and Deltasone. REVIEW OF SYSTEMS: A 12-point review of systems obtained and negative with the exception of that in the HPI. PHYSICAL EXAMINATION: VITAL SIGNS: Temperature 100.8, blood pressure 137/75, pulse 120, respiratory rate 16, and O2 saturation is 96%. GENERAL: This is a pleasant, cooperative black male, in no acute distress. Answers questions appropriately. HEENT: Normocephalic and atraumatic. Conjunctivae clear. Sclerae anicteric. Oral mucosa is moist. NECK: Supple. No lymphadenopathy. Neck veins flat. LUNGS: His respirations are even and unlabored. Breath sounds clear to auscultation. HEART: Rate is regular but increased. I did not hear any murmur, rub, or gallop. History And Physical [address] [place]. [address] NAME: VICKI COREY : 67 STATUS : ADM IN [facility]#: [id number] AGE: 52 ADM/REG DATE : 01/28/17 MR#: [id number] REPORT SERV DATE: 01/28/17 DICTATED BY: DATE: REPORT STATUS : Draft TRANSCRIBED BY: MODL DATE: 01/28/17 ABDOMEN: Soft and nontender. PD catheter exit site clear. PD fluid is clear pale yellow. BACK: No CVA tenderness. Back within normal limits. EXTREMITIES: No edema, cyanosis, or clubbing. SKIN: No unusual rashes or skin lesions. NEUROLOGIC: Generalized weakness. No focal deficits. Mood and affect flat but appropriate. PERTINENT LABS AND X-RAYS: Chest x-ray with cardiomegaly but otherwise negative. Lactate 2.6. Procalcitonin 6.5. Sodium 140, potassium 3.6, chloride 105, CO2 of 22, BUN of 49, and creatinine of 8.1. Calcium 7.1, albumin of 1.4. LFTs unremarkable. WBC 17,000, H and H of 9 and 30, platelets 220,000. C difficile positive. Stool cultures negative. IMPRESSION: 1. Sepsis secondary to Clostridium difficile. 2. Clostridium difficile colitis. 3. Nausea and vomiting. 4. Hypertension. 5. Hypoglycemia. 6. End-stage renal disease, on PD with failed kidney and pancreas transplant. 7. Chronic immunosuppression. PLAN: We will plan to do vancomycin p.o. long tapering dose. He has been given IV fluids, antiemetics. We will do PD with 1.5% solution. Hold antihypertensive as able. Further orders and recommendations pending clinical course. I did have discussion with and patient regarding the importance of completing course of vancomycin to ensure eradication. We will discuss further with the patient when he is feeling better. Further orders and recommendations pending clinical course. LYDIA/NIGEL DELIA Chen / [id number] CC: Naeem Nielson M.D.
[2017-01-27 23:00] LABS: BASOPHILS 0.4 %; BASOPHILS ABSOLUTE 0.07 10/3/uL (0.0-0.16); EOSINOPHILS 1.7 %; EOSINOPHILS ABSOLUTE 0.29 10/3/uL (0.0-0.53); HEMOGLOBIN 9.7 g/dL (13.6-17.8); IMMATURE GRANULOCYTES 0.7 %; IMMATURE GRANULOCYTES ABSOLUTE 0.12 10/3/uL (0.0-0.11); LYMPHOCYTES 24.6 %; LYMPHOCYTES ABSOLUTE 4.22 10/3/uL (0.67-4.30); MEAN CORPUS HGB CONC 31.5 g/dL (32.0-36.0); MEAN CORPUSCULAR HEMOGLOB 30.8 pg (26.0-34.0); MEAN PLATELET VOLUME 9.3 fL (9.2-13.0); MONOCYTES 22.9 %; MONOCYTES ABSOLUTE 3.92 10/3/uL (0.21-1.20); NEUTROPHILS 49.7 %; NEUTROPHILS ABSOLUTE 8.52 10/3/uL (2.02-8.40); NUCLEATED RED BLOOD CELLS 0.7 /100WBC (0-0); RED CELL COUNT 3.15 10/6/uL (4.7-6.1)
[2017-01-27 23:01] LABS: ER CBC TAT 0 Hrs 16 Mins; HEMATOCRIT 30.8 % (40.0-51.0); MANUAL DIFF NO %; MEAN CORPUSCULAR VOLUME 97.8 fL (80-100); PLATELET COUNT 223 10/3/uL (150-400); RBC DISTRIBUTION WIDTH 21.5 % (12.0-16.0); WHITE BLOOD CELLS 17.1 10/3/uL (4.5-10.5)
[2017-01-27 23:10] LABS: A/G RATIO 0.4 (0.7-1.9); ALBUMIN 1.4 G/DL (3.5-5.0); BUN (BLOOD UREA NITROGEN) 49 MG/DL (6-23); CHLORIDE, SERUM 105 MMOL/L (96-112); CREATININE 8.13 MG/DL (0.70-1.30); GFR AFRICAN AMERICAN 8 ML/MIN (>=60); GFR NON AFRICAN AMERICAN 7 ML/MIN (>=60); POTASSIUM, SERUM 3.6 MMOL/L (3.5-5.3); SGOT(AST) 21 U/L (5-40); SGPT(ALT) 14 U/L (5-65); SODIUM, SERUM 140 MMOL/L (135-148); TOTAL BILIRUBIN 0.4 MG/DL (0-1.2); TOTAL PROTEIN 5.4 G/DL (6.0-8.5)
[2017-01-27 23:14] LABS: ALKALINE PHOSPHATASE 63 U/L (45-117); CALCIUM, SERUM 7.1 MG/DL (8.5-10.4); CO2 (CARBON DIOXIDE) 22 MMOL/L (24-34); GLUCOSE, SERUM 60 MG/DL (60-99)
[2017-01-27 23:18] LABS: ANISOCYTOSIS 1+ (5-10/OIF) (0-5/OIF); BAND NEUTROPHILS 25 %; BASOPHILS 1 %; BASOPHILS ABSOLUTE (CALC) 0.17 10/3/uL (0.0-0.16); EOSINOPHILS 2 %; EOSINOPHILS ABSOLUTE (CALC) 0.34 10/3/uL (0.0-0.53); ER DIFF TAT 0 Hrs 33 Mins; LYMPHOCYTES 18 %; LYMPHOCYTES ABSOLUTE (CALC) 3.08 10/3/uL (0.67-4.30); MONOCYTES 11 %; MONOCYTES ABSOLUTE (CALC) 1.88 10/3/uL (0.21-1.20); NEUTROPHILS ABSOLUTE (CALC) 11.63 10/3/uL (2.02-8.40); PLATELET ESTIMATE ADQ (ADEQUATE); SEGMENTED NEUTROPHIL (0) 43 %; TOTAL NUCLEATED CELLS 100
[2017-01-27 23:28] LABS: PROCALCITONIN 6.51 ng/mL (<0.5)
[~2017-01-27 23:50] MED LIST changes: +ASABAYER PO; +CLINDA150 PO; +ROCALTROL0.25 MCG PO
[2017-01-28] MEDS ORDERED: NORV10 PO (00:26)
[2017-01-28] MEDS ORDERED: ROCALTROL 0.0.25 MCG PO (00:26)
[2017-01-28] MEDS ORDERED: ASABAYER PO (00:26)
[2017-01-28] MEDS ORDERED: LIPITOR40 PO (00:26)
[2017-01-28] MEDS ORDERED: PHOSLO PO (00:27)
[2017-01-28] MEDS ORDERED: FERROUS SULF325 M1 PO (00:27)
[2017-01-28] MEDS ORDERED: COREG6 PO (00:27)
[2017-01-28] MEDS ORDERED: NOVOLOG SC ×2 (00:29→00:31)
[2017-01-28] MEDS ORDERED: LEVEMIR SC ×2 (00:31→00:32)
[2017-01-28] MEDS ORDERED: P5 PO (00:33)
[2017-01-28] MEDS ORDERED: CENTRUM PO (00:33)
[2017-01-28 12:46] LABS: BASOPHILS 0.5 %; BASOPHILS ABSOLUTE 0.06 10/3/uL (0.0-0.16); EOSINOPHILS 2.6 %; EOSINOPHILS ABSOLUTE 0.34 10/3/uL (0.0-0.53); HEMOGLOBIN 9.4 g/dL (13.6-17.8); IMMATURE GRANULOCYTES 0.8 %; LYMPHOCYTES 23.9 %; LYMPHOCYTES ABSOLUTE 3.15 10/3/uL (0.67-4.30); MEAN CORPUS HGB CONC 31.3 g/dL (32.0-36.0); MEAN CORPUSCULAR HEMOGLOB 30.2 pg (26.0-34.0); MEAN CORPUSCULAR VOLUME 96.5 fL (80-100); MEAN PLATELET VOLUME 9.3 fL (9.2-13.0); MONOCYTES 16.2 %; MONOCYTES ABSOLUTE 2.13 10/3/uL (0.21-1.20); NUCLEATED RED BLOOD CELLS 0.4 /100WBC (0-0); PLATELET COUNT 198 10/3/uL (150-400); RBC DISTRIBUTION WIDTH 21.3 % (12.0-16.0); RED CELL COUNT 3.11 10/6/uL (4.7-6.1); WHITE BLOOD CELLS 13.2 10/3/uL (4.5-10.5)
[2017-01-28 12:47] LABS: MANUAL DIFF NO %
[2017-01-28 12:55] LABS: ALBUMIN 1.3 G/DL (3.5-5.0); BUN (BLOOD UREA NITROGEN) 47 MG/DL (6-23); CHLORIDE, SERUM 103 MMOL/L (96-112); CO2 (CARBON DIOXIDE) 24 MMOL/L (24-34); CREATININE 7.66 MG/DL (0.70-1.30); GFR AFRICAN AMERICAN 9 ML/MIN (>=60); GFR NON AFRICAN AMERICAN 7 ML/MIN (>=60); PHOSPHORUS, SERUM 4.3 MG/DL (2.5-4.5); POTASSIUM, SERUM 3.8 MMOL/L (3.5-5.3); SODIUM, SERUM 139 MMOL/L (135-148)
[2017-01-28 12:59] LABS: CALCIUM, SERUM 6.8 MG/DL (8.5-10.4); GLUCOSE, SERUM 250 MG/DL (60-99)
[2017-01-29 09:57] LABS: BASOPHILS 0.3 %; BASOPHILS ABSOLUTE 0.04 10/3/uL (0.0-0.16); EOSINOPHILS 4.2 %; EOSINOPHILS ABSOLUTE 0.58 10/3/uL (0.0-0.53); HEMOGLOBIN 9.1 g/dL (13.6-17.8); IMMATURE GRANULOCYTES 0.7 %; IMMATURE GRANULOCYTES ABSOLUTE 0.09 10/3/uL (0.0-0.11); LYMPHOCYTES 18.8 %; LYMPHOCYTES ABSOLUTE 2.56 10/3/uL (0.67-4.30); MEAN CORPUS HGB CONC 31.4 g/dL (32.0-36.0); MEAN CORPUSCULAR HEMOGLOB 30.3 pg (26.0-34.0); MEAN CORPUSCULAR VOLUME 96.7 fL (80-100); MEAN PLATELET VOLUME 9.9 fL (9.2-13.0); MONOCYTES 11.6 %; MONOCYTES ABSOLUTE 1.59 10/3/uL (0.21-1.20); NEUTROPHILS 64.4 %; NEUTROPHILS ABSOLUTE 8.79 10/3/uL (2.02-8.40); PLATELET COUNT 194 10/3/uL (150-400); RBC DISTRIBUTION WIDTH 21.1 % (12.0-16.0); WHITE BLOOD CELLS 13.7 10/3/uL (4.5-10.5)
[2017-01-29 09:58] LABS: MANUAL DIFF NO %
[2017-01-29 10:01] LABS: ALBUMIN 1.2 G/DL (3.5-5.0); CALCIUM, SERUM 7.2 MG/DL (8.5-10.4); CHLORIDE, SERUM 106 MMOL/L (96-112); CO2 (CARBON DIOXIDE) 21 MMOL/L (24-34); CREATININE 7.18 MG/DL (0.70-1.30); GFR AFRICAN AMERICAN 9 ML/MIN (>=60); GFR NON AFRICAN AMERICAN 8 ML/MIN (>=60); GLUCOSE, SERUM 272 MG/DL (60-99); PHOSPHORUS, SERUM 3.8 MG/DL (2.5-4.5); POTASSIUM, SERUM 3.7 MMOL/L (3.5-5.3); SODIUM, SERUM 139 MMOL/L (135-148)
[2017-01-29 10:02] LABS: BUN (BLOOD UREA NITROGEN) 38 MG/DL (6-23)
[2017-01-30 07:44] LABS: ALBUMIN 1.2 G/DL (3.5-5.0); BUN (BLOOD UREA NITROGEN) 39 MG/DL (6-23); CALCIUM, SERUM 6.9 MG/DL (8.5-10.4); CHLORIDE, SERUM 103 MMOL/L (96-112); CO2 (CARBON DIOXIDE) 22 MMOL/L (24-34); CREATININE 7.23 MG/DL (0.70-1.30); GFR AFRICAN AMERICAN 9 ML/MIN (>=60); GFR NON AFRICAN AMERICAN 8 ML/MIN (>=60); GLUCOSE, SERUM 275 MG/DL (60-99); PHOSPHORUS, SERUM 3.8 MG/DL (2.5-4.5); POTASSIUM, SERUM 3.8 MMOL/L (3.5-5.3); SODIUM, SERUM 139 MMOL/L (135-148)
[2017-01-30 12:10] LABS: BASOPHILS 0.4 %; BASOPHILS ABSOLUTE 0.05 10/3/uL (0.0-0.16); EOSINOPHILS 4.4 %; EOSINOPHILS ABSOLUTE 0.49 10/3/uL (0.0-0.53); HEMATOCRIT 28.7 % (40.0-51.0); HEMOGLOBIN 9.1 g/dL (13.6-17.8); IMMATURE GRANULOCYTES 0.8 %; IMMATURE GRANULOCYTES ABSOLUTE 0.09 10/3/uL (0.0-0.11); LYMPHOCYTES 17.7 %; LYMPHOCYTES ABSOLUTE 1.97 10/3/uL (0.67-4.30); MEAN CORPUS HGB CONC 31.7 g/dL (32.0-36.0); MEAN CORPUSCULAR HEMOGLOB 30.7 pg (26.0-34.0); MONOCYTES 9.6 %; MONOCYTES ABSOLUTE 1.07 10/3/uL (0.21-1.20); NEUTROPHILS 67.1 %; NEUTROPHILS ABSOLUTE 7.45 10/3/uL (2.02-8.40); PLATELET COUNT 180 10/3/uL (150-400); RBC DISTRIBUTION WIDTH 21.2 % (12.0-16.0); RED CELL COUNT 2.96 10/6/uL (4.7-6.1); WHITE BLOOD CELLS 11.1 10/3/uL (4.5-10.5)
[2017-01-30 12:13] LABS: MANUAL DIFF NO %
[2017-01-31 07:57] LABS: BASOPHILS 0.7 %; BASOPHILS ABSOLUTE 0.06 10/3/uL (0.0-0.16); EOSINOPHILS 3.9 %; EOSINOPHILS ABSOLUTE 0.35 10/3/uL (0.0-0.53); HEMATOCRIT 27.7 % (40.0-51.0); HEMOGLOBIN 8.5 g/dL (13.6-17.8); IMMATURE GRANULOCYTES 0.8 %; IMMATURE GRANULOCYTES ABSOLUTE 0.07 10/3/uL (0.0-0.11); LYMPHOCYTES 27.9 %; LYMPHOCYTES ABSOLUTE 2.48 10/3/uL (0.67-4.30); MEAN CORPUS HGB CONC 30.7 g/dL (32.0-36.0); MEAN CORPUSCULAR HEMOGLOB 29.5 pg (26.0-34.0); MEAN CORPUSCULAR VOLUME 96.2 fL (80-100); MEAN PLATELET VOLUME 11.1 fL (9.2-13.0); MONOCYTES 12.2 %; MONOCYTES ABSOLUTE 1.09 10/3/uL (0.21-1.20); NEUTROPHILS 54.5 %; NEUTROPHILS ABSOLUTE 4.85 10/3/uL (2.02-8.40); RBC DISTRIBUTION WIDTH 20.9 % (12.0-16.0); RED CELL COUNT 2.88 10/6/uL (4.7-6.1); WHITE BLOOD CELLS 8.9 10/3/uL (4.5-10.5)
[2017-01-31 08:15] LABS: ALBUMIN 1.1 G/DL (3.5-5.0); CHLORIDE, SERUM 103 MMOL/L (96-112); CREATININE 7.23 MG/DL (0.70-1.30); GFR AFRICAN AMERICAN 9 ML/MIN (>=60); GFR NON AFRICAN AMERICAN 8 ML/MIN (>=60); GLUCOSE, SERUM 240 MG/DL (60-99); PHOSPHORUS, SERUM 3.5 MG/DL (2.5-4.5); SODIUM, SERUM 141 MMOL/L (135-148)
[2017-01-31 08:16] LABS: BUN (BLOOD UREA NITROGEN) 35 MG/DL (6-23); CO2 (CARBON DIOXIDE) 27 MMOL/L (24-34); POTASSIUM, SERUM 3.7 MMOL/L (3.5-5.3)
[2017-01-31 08:34] LABS: MANUAL DIFF NO %; PLATELET COUNT 108 10/3/uL (150-400)
[2017-01-31 08:36] LABS: ANISOCYTOSIS 1+ (5-10/OIF) (0-5/OIF); PLATELET ESTIMATE SLT DEC (ADEQUATE)
[2017-01-31 08:38] LABS: ACANTHOCYTES OCC (0-2/OIF); SCHISTOCYTES OCC (0-2/OIF)
[2017-02-01 05:57] LABS: BASOPHILS 0.2 %; BASOPHILS ABSOLUTE 0.01 10/3/uL (0.0-0.16); EOSINOPHILS 2.5 %; EOSINOPHILS ABSOLUTE 0.12 10/3/uL (0.0-0.53); IMMATURE GRANULOCYTES 0.4 %; IMMATURE GRANULOCYTES ABSOLUTE 0.02 10/3/uL (0.0-0.11); LYMPHOCYTES 28.8 %; LYMPHOCYTES ABSOLUTE 1.38 10/3/uL (0.67-4.30); MEAN CORPUS HGB CONC 30.8 g/dL (32.0-36.0); MEAN CORPUSCULAR HEMOGLOB 29.7 pg (26.0-34.0); MEAN CORPUSCULAR VOLUME 96.4 fL (80-100); MEAN PLATELET VOLUME 10.3 fL (9.2-13.0); MONOCYTES 12.1 %; MONOCYTES ABSOLUTE 0.58 10/3/uL (0.21-1.20); NEUTROPHILS ABSOLUTE 2.68 10/3/uL (2.02-8.40); PLATELET COUNT 93 10/3/uL (150-400); RBC DISTRIBUTION WIDTH 20.4 % (12.0-16.0)
[2017-02-01 06:00] LABS: HEMOGLOBIN 13.2 g/dL (13.6-17.8); RED CELL COUNT 4.44 10/6/uL (4.7-6.1); WHITE BLOOD CELLS 4.8 10/3/uL (4.5-10.5)
[2017-02-01 06:01] LABS: ALBUMIN 1.1 G/DL (3.5-5.0); BUN (BLOOD UREA NITROGEN) 34 MG/DL (6-23); CALCIUM, SERUM 7.6 MG/DL (8.5-10.4); CHLORIDE, SERUM 104 MMOL/L (96-112); CO2 (CARBON DIOXIDE) 27 MMOL/L (24-34); CREATININE 7.49 MG/DL (0.70-1.30); GFR AFRICAN AMERICAN 9 ML/MIN (>=60); GFR NON AFRICAN AMERICAN 8 ML/MIN (>=60); GLUCOSE, SERUM 236 MG/DL (60-99); HEMATOCRIT 42.8 % (40.0-51.0); MANUAL DIFF NO %; PHOSPHORUS, SERUM 3.7 MG/DL (2.5-4.5); POTASSIUM, SERUM 3.6 MMOL/L (3.5-5.3); SODIUM, SERUM 140 MMOL/L (135-148)
[2017-02-01 06:27] LABS: ANISOCYTOSIS 1+ (5-10/OIF) (0-5/OIF); HELMET CELLS OCC (0-2/OIF); MACROCYTES 1+ (5-10/OIF) (0-5/OIF); PLATELET ESTIMATE DEC (ADEQUATE); POLYCHROMASIA 1+ (2-5/OIF) (0-1/OIF); SCHISTOCYTES OCC (0-2/OIF); TEARDROP SHAPED RBCS OCC (0-2/OIF)
[2017-02-01 06:28] LABS: ACANTHOCYTES OCC (0-2/OIF); TARGET CELLS OCC (1-2/OIF) (0-1/OIF)
[2017-02-01] MEDS ORDERED: VANCOCIN HCL125 MG PO (11:48)
== END 2017-02-01 16:18 | disposition home or self-care (01) | DRG 871 ==
LOC: ER 23:50 → 4SO 01-28 00:10
PROVIDERS: Emergency Medicine; Nurse Practitioner
PROC: 3E1M39Z Irrigation of Peritoneal Cavity using Dialysate, Percutaneous Approach (ICD-10-PCS; principal; 2017-01-28)
DX: A41.89 Other specified sepsis (principal); N18.6 End stage renal disease; T86.891 Other transplanted tissue failure; T86.12 Kidney transplant failure; A04.7 Enterocolitis due to Clostridium difficile; I12.0 Hypertensive chronic kidney disease with stage 5 chronic kidney disease or end stage renal disease; E11.22 Type 2 diabetes mellitus with diabetic chronic kidney disease; Z99.2 Dependence on renal dialysis; Z79.899 Other long term (current) drug therapy; Z79.82 Long term (current) use of aspirin; Z79.4 Long term (current) use of insulin; Z88.1 Allergy status to other antibiotic agents; D63.1 Anemia in chronic kidney disease; E11.319 Type 2 diabetes mellitus with unspecified diabetic retinopathy without macular edema; E78.5 Hyperlipidemia, unspecified; E11.51 Type 2 diabetes mellitus with diabetic peripheral angiopathy without gangrene; Z95.820 Peripheral vascular angioplasty status with implants and grafts; H54.8 Legal blindness, as defined in USA; Z89.412 Acquired absence of left great toe; E04.9 Nontoxic goiter, unspecified; E11.649 Type 2 diabetes mellitus with hypoglycemia without coma; R53.1 Weakness; T37.3X6A Underdosing of other antiprotozoal drugs, initial encounter; Z91.128 Patient's intentional underdosing of medication regimen for other reason; Y92.009 Unspecified place in unspecified non-institutional (private) residence as the place of occurrence of the external cause
CPT/HCPCS: 71010; 71020; 80053; 80069; 81001; 82962; 83605; 83735; 84145; 85025; 87040; 87045; 87046; 87046-59; 87328; 87329; 87493; 87493-59; 87899; 87899-59; 89055; 96365; 96375; 97110-GP; 97116-GP; 97162-GP; 99285; A9270-GY; G8978-CK-GP; G8979-CJ-GP; J0610; J2405

== ENCOUNTER 2017-03-24 20:17 | Observation (INO) | payer MEDICARE, BC ==
--- NOTE | ~2017-03-24 | HP ---
History And Physical [facility] [address] [place], [place] [address]. [place]. [address] NAME: VICKI COREY : 67 STATUS : ADM Ivon PAT#: [id number] AGE: 52 ADM/REG DATE : 03/24/17 MR#: [id number] REPORT SERV DATE: 03/25/17 DICTATED BY: GAGANDEEP DONALD V. DATE: 03/24/17 REPORT STATUS : Draft TRANSCRIBED BY: MODL DATE: 03/24/17 DATE OF ADMISSION: 03/24/2017 CHIEF COMPLAINT: Right lower extremity swelling. HISTORY OF PRESENT ILLNESS: Mr. Corey is a 52-year-old gentleman with failed kidney transplant and pancreas transplant at [facility] in 2000, who had increased right lower extremity edema. He had right lower extremity venous Doppler done today as an outpatient and was found to have a right lower extremity DVT. The extent of this DVT is not known as there is no even verbal report available at the time of my dictation. He denies any new change in his chronic mild dyspnea. He has had some right lower extremity pain and swelling. Denies any prolonged periods of immobility. Denies any recent injury to his right lower extremity. PAST MEDICAL HISTORY: 1. ESRD due to diabetes mellitus, presently on hemodialysis. 2. Diabetes with diabetic retinopathy. He is legally blind. 3. Hypertension. 4. Condyloma of the penis. 5. Goiter. 6. Anemia with prior negative bone marrow biopsy for myelodysplastic syndrome. 7. Peripheral vascular disease. ALLERGIES: INCLUDE KEFLEX. FAMILY HISTORY: Positive for lupus. Mother did have a pulmonary embolus. SOCIAL HISTORY: . No tobacco or alcohol. MEDICATIONS: Medication list is being compiled and presently, he states he is only on prednisone, this is lone remaining immunosuppressive therapy. REVIEW OF SYSTEMS: All review of systems were negative except as described above. PAST SURGICAL HISTORY: Includes the aforementioned kidney pancreas transplant, peritoneal dialysis catheter placement, and left lower extremity vascular stenting. REVIEW OF SYSTEMS: All review of systems are negative except as described above. PHYSICAL EXAMINATION: VITAL SIGNS: Temperature was 97.7, heart rate 71, blood pressure 100/65. GENERAL: He is a pleasant, thin gentleman with no increased work of breathing. HEENT: Sclerae were anicteric. Pupils were not reactive. Left eye had a rather sclerotic History And Physical [facility] [address] [facility] [place]. [address] NAME: VICKI COREY : 67 STATUS : ADM Ivon PAT#: [id number] AGE: 52 ADM/REG DATE : 03/24/17 MR#: [id number] REPORT SERV DATE: 03/25/17 DICTATED BY: GAGANDEEP DONALD V. DATE: 03/24/17 REPORT STATUS : Draft TRANSCRIBED BY: MODL DATE: 03/24/17 appearing cornea. Oropharynx is clear without lesions. NECK: Trachea midline. No thyromegaly. No supraclavicular nodes. No axillary lymph nodes. CHEST: Decreased breath sounds in the bases bilaterally. HEART: Regular rate and rhythm. No rub. ABDOMEN: Soft. PD catheter in place. No drainage. No tenderness. No hepatosplenomegaly. EXTREMITIES: Right lower extremity 1+ edema. Left lower extremity trace edema. SKIN: Warm and dry. No rash or lesions. No musculoskeletal joint tenderness or joint effusions were noted in knees or ankles bilaterally. Chest x-ray reviewed by me showed minimal cardiovascular and pulmonary congestion, but did have small bilateral pleural effusions. LABORATORY DATA: White count 7.8, hematocrit 38. INR 1.1. BNP was greater than 5000. Potassium 3.9. Troponin 0.11. As mentioned above, an outpatient lower extremity Doppler study preliminarily positive for DVT. IMPRESSION: A 52-year-old gentleman with history of thrombotic event in his family with his mother having a deep vein thrombosis and pulmonary embolism, now with right lower extremity deep vein thrombosis. No known thrombophilia in the past, but clearly is in need of treatment for this deep vein thrombosis at present, of a consideration for thrombophilia workup. Also has some degree of excess volume. Presently, he has been on 1.5% dextrose peritoneal dialysis fluid at home. We need to obtain his outpatient records to see if there is a need of dry weight adjustment. PLAN: 1. Initiate Lovenox 1 mg/kg daily. 2. Initiate warfarin therapy. 3. Home peritoneal dialysis regimen to continue for now with adjustments as described above. 4. Home medication. 5. Consider thrombophilia workup under the direction of Hematology. JOSÉ MIGUEL/NIGEL Gagandeep Donald M.D. / [id number] CC: Naeem Rios M.D.
[2017-03-24 17:34] LABS: BASOPHILS 0.3 %; BASOPHILS ABSOLUTE 0.02 10/3/uL (0.0-0.16); EOSINOPHILS ABSOLUTE 0.08 10/3/uL (0.0-0.53); HEMOGLOBIN 11.6 g/dL (13.6-17.8); IMMATURE GRANULOCYTES 0.4 %; IMMATURE GRANULOCYTES ABSOLUTE 0.03 10/3/uL (0.0-0.11); LYMPHOCYTES 22.6 %; LYMPHOCYTES ABSOLUTE 1.75 10/3/uL (0.67-4.30); MEAN CORPUS HGB CONC 30.8 g/dL (32.0-36.0); MEAN CORPUSCULAR HEMOGLOB 30.3 pg (26.0-34.0); MEAN CORPUSCULAR VOLUME 98.4 fL (80-100); MEAN PLATELET VOLUME 11.3 fL (9.2-13.0); MONOCYTES 10.4 %; MONOCYTES ABSOLUTE 0.81 10/3/uL (0.21-1.20); NEUTROPHILS 65.3 %; NEUTROPHILS ABSOLUTE 5.07 10/3/uL (2.02-8.40); RBC DISTRIBUTION WIDTH 19.6 % (12.0-16.0); RED CELL COUNT 3.83 10/6/uL (4.7-6.1)
[2017-03-24 17:35] LABS: HEMATOCRIT 37.7 % (40.0-51.0); MANUAL DIFF NO %; PLATELET COUNT 197 10/3/uL (150-400); WHITE BLOOD CELLS 7.8 10/3/uL (4.5-10.5)
[2017-03-24 17:49] LABS: BUN (BLOOD UREA NITROGEN) 37 MG/DL (6-23); CALCIUM, SERUM 8.2 MG/DL (8.5-10.4); CHLORIDE, SERUM 105 MMOL/L (96-112); CO2 (CARBON DIOXIDE) 26 MMOL/L (24-34); CREATININE 7.97 MG/DL (0.70-1.30); GFR AFRICAN AMERICAN 8 ML/MIN (>=60); GFR NON AFRICAN AMERICAN 7 ML/MIN (>=60); GLUCOSE, SERUM 265 MG/DL (60-99); POTASSIUM, SERUM 3.9 MMOL/L (3.5-5.3); SODIUM, SERUM 142 MMOL/L (135-148)
[2017-03-24 17:50] LABS: CHEST PAIN PROFILE TAT 0 Hrs 21 Mins; TROPONIN I 0.11 NG/ML (<0.05)
[2017-03-24 18:32] LABS: INTERNATIONAL NORMAL RATI 1.1 UNITS (-); PROTIME (NOT ORD) 14.1 SEC (12.0-14.5)
[2017-03-24 18:33] LABS: PARTIAL THROMBO TIME 30.4 SEC (22.5-37.2)
[~2017-03-24 20:17] MED LIST changes: +VANCOCIN HCL125 MG PO
[2017-03-24] MEDS ORDERED: VANCOCIN HCL125 MG PO (20:58)
[2017-03-24] MEDS ORDERED: L40 PO (21:00)
[2017-03-24] MEDS ORDERED: SODIUM BICARBONATE PO (21:02)
[2017-03-24] MEDS ORDERED: SODBICAR10 PO (21:05)
[2017-03-25 05:45] LABS: INTERNATIONAL NORMAL RATI 1.2 UNITS (-); PROTIME (NOT ORD) 14.6 SEC (12.0-14.5)
[2017-03-25 05:50] LABS: BASOPHILS 0.3 %; BASOPHILS ABSOLUTE 0.03 10/3/uL (0.0-0.16); EOSINOPHILS 1.7 %; EOSINOPHILS ABSOLUTE 0.15 10/3/uL (0.0-0.53); HEMOGLOBIN 11.8 g/dL (13.6-17.8); IMMATURE GRANULOCYTES 0.3 %; IMMATURE GRANULOCYTES ABSOLUTE 0.03 10/3/uL (0.0-0.11); LYMPHOCYTES 19.2 %; LYMPHOCYTES ABSOLUTE 1.68 10/3/uL (0.67-4.30); MEAN CORPUS HGB CONC 30.3 g/dL (32.0-36.0); MEAN CORPUSCULAR HEMOGLOB 29.7 pg (26.0-34.0); MEAN CORPUSCULAR VOLUME 98.2 fL (80-100); MEAN PLATELET VOLUME 11.5 fL (9.2-13.0); MONOCYTES 13.1 %; MONOCYTES ABSOLUTE 1.15 10/3/uL (0.21-1.20); NEUTROPHILS 65.4 %; NEUTROPHILS ABSOLUTE 5.71 10/3/uL (2.02-8.40); PLATELET COUNT 163 10/3/uL (150-400); RBC DISTRIBUTION WIDTH 19.6 % (12.0-16.0); RED CELL COUNT 3.97 10/6/uL (4.7-6.1); WHITE BLOOD CELLS 8.8 10/3/uL (4.5-10.5)
[2017-03-25 05:51] LABS: MANUAL DIFF NO %
[2017-03-25 05:53] LABS: BUN (BLOOD UREA NITROGEN) 37 MG/DL (6-23); CALCIUM, SERUM 8.5 MG/DL (8.5-10.4); CHLORIDE, SERUM 107 MMOL/L (96-112); CO2 (CARBON DIOXIDE) 22 MMOL/L (24-34); CREATININE 7.92 MG/DL (0.70-1.30); GFR AFRICAN AMERICAN 8 ML/MIN (>=60); GFR NON AFRICAN AMERICAN 7 ML/MIN (>=60); GLUCOSE, SERUM 203 MG/DL (60-99); PHOSPHORUS, SERUM 5.1 MG/DL (2.5-4.5); POTASSIUM, SERUM 3.7 MMOL/L (3.5-5.3); SODIUM, SERUM 141 MMOL/L (135-148)
[2017-03-25 06:56] LABS: TROPONIN I 0.08 NG/ML (<0.05)
[2017-03-25] MEDS ORDERED: LOVENOX80 SC (16:34)
[2017-03-25] MEDS ORDERED: C1 PO (16:40)
== END 2017-03-25 18:00 | disposition home or self-care (01) ==
LOC: ER 20:17 → 2SO 20:26
PROVIDERS: Emergency Medicine; Internal Medicine Nephrology
DX: I82.401 Acute embolism and thrombosis of unspecified deep veins of right lower extremity (principal); N18.6 End stage renal disease; E11.22 Type 2 diabetes mellitus with diabetic chronic kidney disease; E11.319 Type 2 diabetes mellitus with unspecified diabetic retinopathy without macular edema; I12.0 Hypertensive chronic kidney disease with stage 5 chronic kidney disease or end stage renal disease; E78.00 Pure hypercholesterolemia, unspecified; D63.1 Anemia in chronic kidney disease; I73.9 Peripheral vascular disease, unspecified; Z88.8 Allergy status to other drugs, medicaments and biological substances; Z94.0 Kidney transplant status; Z94.83 Pancreas transplant status; Z79.899 Other long term (current) drug therapy; Z87.891 Personal history of nicotine dependence; Z98.890 Other specified postprocedural states
CPT/HCPCS: 71020; 80048; 80069; 82962; 83735; 83880; 84484; 85025; 85610; 85730; 93005; 96372; 99285; A9270-GY; G0378